=== PATIENT | male | born 1965 | race Caucasian/White ===

== ENCOUNTER 2019-11-08 08:15 | Outpatient (CLI) | payer OTHER ==
--- NOTE | 2019-11-08 08:36 | RAD ---
TWO VIEW CHEST: HISTORY: Cough. FINDINGS: Lung saleem are clear. No evidence of infiltrate. Heart and mediastinum unremarkable. Osseous stru ctures unremarkable. IMPRESSION: Unremarkable chest. POS: [id number]
== END 2019-11-08 08:16 | disposition home or self-care (01) ==
LOC: BICRAD 08:15
PROVIDERS: ATTEND Family Medicine
DX: R05 Cough (principal)
CPT/HCPCS: 71046